=== PATIENT | male | born 1965 | race Caucasian/White ===

== ENCOUNTER → 2017-12-23 | Day surgery (SDC) | payer OTHER, BC ==
[~2017-12-23] MED LIST: Lactated Ringers 1,000 ML IV SCH; Propofol 200 MG/20 ML SDV IV ONE
--- NOTE | 2017-12-26 08:57 | OR ---
DATE OF OPERATION: 12/23/2017 PREOPERATIVE DIAGNOSIS: HISTORY OF POLYPS. POSTOPERATIVE DIAGNOSIS: HISTORY OF POLYPS. SURGEON: Les Oneal MD PROCEDURE: FULL-LENGTH COLONOSCOPY WITH POLYP REMOVAL X3, BIOPSY X1. 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 COMPLICATIONS: None. SPECIMEN: 1. Biopsy x1 lipoma, ascending colon. 2. Hyperplastic polyps x2. 3. Tubular adenoma, distal sigmoid colon. FINDINGS: 1. Full-length colonoscopy. 2. Three separate polyps, see op note. 3. Submucosal lipoma. RECOMMENDATIONS: Followup colonoscopy in 5 years. INDICATIONS: Mr. York has a prior history of polyp removal. He was sent by his [place] provider for colonoscopy followup. DESCRIPTION OF PROCEDURE: The patient was prepped and draped, placed in the left lateral decubitus position. A lubricated Olympus colonoscope was inserted and with relative ease advanced to the cecum. The patient had a lot of stool in the colon, was liquid, mostly suctioned, we 3 times had to scope up and we had to run a brush down to clean it. Unfortunately, the cecum and the proximal ascending colon appeared to have a lot of stool and could not get it all suctioned. No gross abnormalities were seen. In the mid ascending colon, the patient had a submucosal lipoma, biopsied for confirmation. The distal ascending colon also had a small hyperplastic polyp, removed in its entirety with the forceps. The transverse colon was completely unremarkable. As was the descending colon, in the sigmoid area, the patient had 2 more polyps, 1 small hyperplastic polyp in the mid sigmoid colon, removed with forceps, the 3rd and largest of the 3 polyps was a small tubular adenoma less than a 0.5 cm in the distal sigmoid, removed with a snare and suctioned into polyp trap #1 without complication. Sigmoid colon had no signs of any vascular abnormalities, colitis, or diverticular disease. The rectal vault was benign. There was a lot of stool present. Retroflexion was accomplished and no obvious perianal lesions were seen. Air was suctioned. The scope was removed without complication. ISAMAR/LINO /[id number]
== END ==
LOC: CC.SDS 09:50
PROVIDERS: ATTEND Family Medicine
DX: Z12.11 Encounter for screening for malignant neoplasm of colon (principal); D12.3 Benign neoplasm of transverse colon; D12.5 Benign neoplasm of sigmoid colon; K63.5 Polyp of colon; I10 Essential (primary) hypertension; G47.33 Obstructive sleep apnea (adult) (pediatric); Z99.89 Dependence on other enabling machines and devices; E66.9 Obesity, unspecified; K21.9 Gastro-esophageal reflux disease without esophagitis; G89.29 Other chronic pain; M54.5 Low back pain; Z87.891 Personal history of nicotine dependence; Z86.010 Personal history of colon polyps; Z79.899 Other long term (current) drug therapy; Z88.6 Allergy status to analgesic agent; Z88.8 Allergy status to other drugs, medicaments and biological substances
CPT/HCPCS: 88305; J2704; J7120

== ENCOUNTER → 2021-01-16 | Day surgery (SDC) | payer OTHER, BC ==
[~2021-01-16] MED LIST changes: +Ketamine 200 MG/20 ML MDV ONE; -Propofol 200 MG/20 ML SDV IV ONE; +Propofol 200 MG/20 ML SDV ONE; +fentaNYL 100 MCG/2 ML SDV ONE
--- NOTE | 2021-01-16 11:35 | OR ---
DATE OF OPERATION: 01/16/2021 PREOPERATIVE DIAGNOSIS: HISTORY OF POLYPS. POSTOPERATIVE DIAGNOSIS: HISTORY OF POLYPS. SURGEON: Les Oneal MD PROCEDURE: FULL-LENGTH COLONOSCOPY WITH FORCEPS POLYP REMOVAL X3. ANESTHESIA: MAC. COMPLICATIONS: None. SPECIMEN: 1. Two small sessile polyps, 3 mm. 2. Small hyperplastic polyp. FINDINGS: 1. Full-length colonoscopy. 2. Small hyperplastic polyp, splenic flexure. 3. Two small right-sided sessile polyps, each 3 mm. RECOMMENDATIONS: Followup colonoscopy in 5 years. INDICATIONS: The patient has a history of polyps removed in the past. He was sent for a surveillance scope by his [place] provider. DESCRIPTION OF PROCEDURE: The patient was prepped and draped, placed in the left lateral decubitus position. A lubricated Olympus colonoscope was inserted and easily advanced to the cecum. We were able to directly visualize the ileocecal valve and appendiceal orifice. The bowel prep was marginal. The patient had a lot of stool, but fortunately most of it was liquid and we were able to suction the majority of it. Some areas had some more solid stool, but I would guess over 90% of the colon had a good evaluation. Upon withdrawal, in the distal ascending colon the patient had a small sessile polyp, approximately 3 mm, which was removed in its entirety with forceps biopsy x2. A 2nd small sessile polyp right at the hepatic flexure was also removed with a forceps biopsy x1. The rest of the transverse colon was unremarkable. The patient had a small hyperplastic polyp approximately 2 mm at the splenic flexure, removed with the forceps without difficulty. The descending colon, sigmoid and rectosigmoid areas had no signs of any polyps, mass, ulceration, or bleeding sites. There were no vascular abnormalities or signs of colitis. The rectal vault was benign. Retroflexing the scope in the rectum showed a lot of perianal hemorrhoid disease without any active bleeding. Air was then suctioned, scope removed without complication. ISAMAR/LINO /[id number]
== END ==
LOC: CC.SDS 09:04
PROVIDERS: ATTEND Family Medicine
DX: Z12.11 Encounter for screening for malignant neoplasm of colon (principal); D12.2 Benign neoplasm of ascending colon; D12.3 Benign neoplasm of transverse colon; K64.4 Residual hemorrhoidal skin tags; K21.9 Gastro-esophageal reflux disease without esophagitis; I10 Essential (primary) hypertension; G47.33 Obstructive sleep apnea (adult) (pediatric); G89.29 Other chronic pain; E66.9 Obesity, unspecified; Z87.891 Personal history of nicotine dependence; Z79.899 Other long term (current) drug therapy
CPT/HCPCS: 00812; 45380; 88305; J2704; J3010; J7120

== ENCOUNTER 2023-01-20 05:00 | Emergency (ER) | payer BC, OTHER ==
[2023-01-20] MEDS: EPINEPHrine 1:10,000 1 MG/10 ML Syringe IVPUSH PRN ×7 (05:03→05:25)
[2023-01-20] MEDS ORDERED: Sodium Chloride 0.9% 1,000 ML IV ONE (05:10)
[2023-01-20] MEDS ORDERED: Amiodarone 150 MG/3 ML SDV ONE ×2 (05:13→05:20)
[2023-01-20] MEDS ORDERED: Sodium Chloride 0.9% 1,000 ML ONE (05:15)
[2023-01-20] MEDS ORDERED: Amiodarone 150 MG/3 ML SDV IVPUSH ONE ×2 (06:17→06:21)
== END 2023-01-20 05:38 | disposition expired ==
LOC: CC.ED 05:00
DX: I46.9 Cardiac arrest, cause unspecified (principal); I10 Essential (primary) hypertension; K21.9 Gastro-esophageal reflux disease without esophagitis; Z88.6 Allergy status to analgesic agent; Z79.899 Other long term (current) drug therapy
CPT/HCPCS: 31500; 96374; 96375; 99285; 99285-25; J0171; J0282; J7030